=== PATIENT | male | born 1970 | race Caucasian/White ===

== ENCOUNTER 2025-05-10 11:47 | Emergency (ER) | payer SELFPAY ==
[2025-05-10] MEDS ORDERED: HYDROCODONE/APAP 7.5/325 MG TAB ONE (14:07)
--- NOTE | 2025-05-10 14:42 | RAD REPORT ---
EXAM: Scrotum Testicles HISTORY: 55 years Male PAIN COMPARISON: None TECHNIQUE: Multiplanar grayscale and color Doppler images were obtained in a testicular/scrotal ultra sound. Spectral analysis of the Doppler waveforms of the testicles were performed. FINDINGS: Right testicle: Normal in echogenicity. No focal mass. Normal internal flow. The right testicle brian ures 4.7 x 2.3 x 3.3 cm with volume of 18.8 mL. Left testicle: Normal in echogenicity. No focal mass. Mild hypervascularity. The left testicle measu res 3.9 x 2.7 x 3.7 cm with volume of 20.3 mL. Right epididymis. No epididymal cyst. Normal internal flow. Left epididymis. No epididymal cyst. Enlarged and hypervascular Small but complex left hydrocele. There are multiple septations. Small right hydrocele which is simpl e in appearance. No varicocele. IMPRESSION: Enlarged and hypervascular left epididymis and testicle likely reflecting epididymoorchitis. A small but complex left hydrocele is present. Bilateral testicular blood flow.
--- NOTE | 2025-05-10 15:10 | EDPHYS ---
Physician Documentation [facility] Name: Cole Rice Age: 55 yrs Sex: Male : 1970 Arrival Date: 05/10/2025 Time: 11:47 Bed 23 Private MD: ED Physician Chuy Cox HPI: 05/10 15:09 This 55 yrs old Male presents to ER via Ambulatory with complaints of Testicular Pain. kb 15:09 Patient is a 55-year-old male who presents for swelling, pain to left testicle that kb started yesterday is gotten worse. Denies fever, urinary symptoms.. Historical: - Allergies: 12:11 LITHIUM DERIVITIVES; ss - PMHx: 12:11 CHF; seizures; Hypertensive disorder; ss ROS: 15:04 Constitutional: As per HPI kb Exam: 15:04 Constitutional: This is a well developed, well nourished patient who is awake, alert, kb and in no acute distress. Head/Face: Normocephalic, atraumatic. ENT: Moist Mucous membranes Respiratory: Respirations even and unlabored. No increased work of breathing. Talking in full sentences Skin: Warm, dry with normal turgor. Normal color. MS/ Extremity: Pulses equal, no cyanosis. Neurovascular intact. Full, normal range of motion. Neuro: Awake and alert, GCS 15, oriented to person, place, time, and situation. 15:04 : Male external genitalia: swelling, of the left testicle is noted, scrotal, tenderness, of the epididymis area, that is moderate, Vital Signs: 16:01 BP 108 / 92; Pulse 77; Resp 16; Pulse Ox 98% on R/A; jb4 MDM: 11:54 Medical Screening Exam initiated kb 15:05 Differential diagnosis: Epididymitis, orchitis, testicular torsion. Data reviewed: kb vital signs, nurses notes. Counseling: I had a detailed discussion with the patient and/or guardian regarding the historical points, exam findings, and any diagnostic results supporting the discharge/admit diagnosis, radiology results, the need for outpatient follow up, a urologist, to return to the emergency department if symptoms worsen or persist or if there are any questions or concerns that arise at home. 05/10 11:54 Order name: Scrotum Testicles US; Complete Time: 14:43 kb Administered Medications: 14:17 Drug: Hydrocodone-Acetaminophen PO (7.5 mg-325 mg) 1 tabs PO once Route: PO; ss 16:00 Follow up: Response: No adverse reaction; Marked relief of symptoms; Pain is decreased jb4 15:42 Drug: Rocephin (cefTRIAXone) IM 500 mg IM once Route: IM; Site: right gluteus; jb4 16:00 Follow up: Response: No adverse reaction jb4 15:42 Drug: Doxycycline PO 100 mg PO once Route: PO; jb4 16:00 Follow up: Response: No adverse reaction jb4 Disposition Summary: 05/10/25 15:10 Discharge Ordered Notes: Location: Home kb Condition: Stable kb Diagnosis - Epididymo-orchitis kb Followup: kb - With: Emergency Department - When: As needed - Reason: Worsening of condition Followup: kb - With: Private Physician - When: 2 - 3 days - Reason: Recheck today's complaints, Continuance of care, Re-evaluation by your physician Discharge Instructions: - Discharge Summary Sheet kb - Epididymitis kb - Orchitis kb Forms: - Medication Reconciliation Form kb - Antibiotic Education kb - Prescription Opioid Use kb - Patient Portal Instructions kb - Leadership Thank You Letter kb Prescriptions: - Doxycycline Hyclate 100 mg Oral Tablet - take 1 tablet ORAL route every 12 hours; 20 tablet; Refills: 0, Product kb Selection Permitted Signatures: Dispatcher [employer] Nohelia Pop, ZAHEER-C SEAFOOD CLERK-Alana Liz, RN RN ss Shahzad Watson RN RN jb4 Vesna Jauregui, RN RN kb3
--- NOTE | 2025-05-10 15:10 | ER ---
Nurse's Notes [facility] Name: Cole Rice Age: 55 yrs Sex: Male : 1970 Arrival Date: 05/10/2025 Time: 11:47 Bed 23 [facility] MD: Diagnosis: Epididymo-orchitis Presentation: 05/10 12:10 Chief complaint: Patient states: L testicular pain and swelling that began yesterday. ss Coronavirus screen: Client denies travel out of the [place] in the last 14 days. Ebola Screen: Patient denies exposure to infectious person. Patient denies travel to an Ebola-affected area in the 21 days before illness onset. Initial Sepsis Screen: Does the patient meet any 2 criteria? No. Patient's initial sepsis screen is negative. Does the patient have a suspected source of infection? No. Patient's initial sepsis screen is negative. Risk Assessment: Do you want to hurt yourself or someone else? Patient reports no desire to harm self or others. Onset of symptoms was May 09, 2025. 12:10 Method Of Arrival: Ambulatory ss 12:10 Acuity: PORSCHE 3 ss Historical: - Allergies: 12:11 LITHIUM DERIVITIVES; ss - PMHx: 12:11 CHF; seizures; Hypertensive disorder; ss Screenin:17 Abuse screen: Denies threats or abuse. Denies injuries from another. Nutritional ss screening: No deficits noted. Tuberculosis screening: Never had TB. 16:01 [facility] ED Fall Risk Assessment (Adult) History of falling in the last 3 months, jb4 including since admission No falls in past 3 months (0 pts) Confusion or Disorientation No (0 pts) Intoxicated or Sedated No (0 pts) Impaired Gait No (0 pts) Mobility Assist Device Used No (0 pt) Altered Elimination No (0 pt) Score/Fall Risk Level 0 - 2 = Low Risk Oriented to surroundings, Maintained a safe environment. Assessment: 14:17 General: Appears uncomfortable, Behavior is calm, cooperative. Pain: Complains of pain ss in left testicle and right testicle Pain currently is 9 out of 10 on a pain scale. Is continuous. Neuro: Level of Consciousness is awake, alert, obeys commands, Oriented to person, place, time, situation. Respiratory: Airway is patent Respiratory effort is even, unlabored, Respiratory pattern is regular, symmetrical. EENT: Nares are clear Oral mucosa is moist. Derm: Skin is intact, is healthy with good turgor, Skin is pink, warm \T\ dry. normal. 16:01 Reassessment: Patient appears in no apparent distress at this time. Patient and/or jb4 family updated on plan of care and expected duration. Pain level reassessed. Patient is alert, oriented x 3, equal unlabored respirations, skin warm/dry/pink. Vital Signs: 16:01 BP 108 / 92; Pulse 77; Resp 16; Pulse Ox 98% on R/A; jb4 ED Course: 11:49 Patient arrived in ED. al6 11:54 Nohelia Horvath, SHIV[facility] is [facility]. kb 11:54 Chuy Cox MD is Attending Physician. kb 12:11 Triage completed. ss 12:35 Scrotum Testicles US In Process Unspecified. EDMS 15:30 Shahzad Watson, RN is Primary Nurse. jb4 16:01 Patient has correct armband on for positive identification. Bed in low position. Call jb4 light in reach. Side rails up X 1. Provided Education on: discharge instructions.. 16:01 No provider procedures requiring assistance completed. Patient did not have IV access jb4 during this emergency room visit. Administered Medications: 14:17 Drug: Hydrocodone-Acetaminophen PO (7.5 mg-325 mg) 1 tabs PO once Route: PO; ss 16:00 Follow up: Response: No adverse reaction; Marked relief of symptoms; Pain is decreased jb4 15:42 Drug: Rocephin (cefTRIAXone) IM 500 mg IM once Route: IM; Site: right gluteus; jb4 16:00 Follow up: Response: No adverse reaction jb4 15:42 Drug: Doxycycline PO 100 mg PO once Route: PO; jb4 16:00 Follow up: Response: No adverse reaction jb4 Medication: 16:01 VIS not applicable for this client. jb4 Outcome: 15:10 Discharge ordered by . kb 16:01 Discharged to home ambulatory, jb4 16:01 Condition: stable 16:01 Discharge instructions given to patient, Instructed on discharge instructions, follow up and referral plans. medication usage, Demonstrated understanding of instructions, follow-up care, medications, Prescriptions given X 1, 16:04 Patient left the ED. jb4 Signatures: Dispatcher [employer] EDMS Nohelia Horvath MARKET RESEARCH INTERN-C MARKET RESEARCH INTERN-Ckb Alana Mg, RN RN ss Shahzad Watson RN RN jb4 Delores Luke
[2025-05-10] MEDS ORDERED: CEFTRIAXONE 500 MG/VIAL ONE (15:32)
[2025-05-10] MEDS ORDERED: WATER FOR INJ,STERILE 10 ML ONE (15:33)
[2025-05-10] MEDS ORDERED: DOXYCYCLINE 100 MG CAP PO ONE (15:33)
[2025-05-10 16:32] VITALS: BP 108/92; O2SAT 98
== END 2025-05-10 16:04 | disposition home or self-care (01) ==
LOC: ER 11:47
DX: N45.3 Epididymo-orchitis (principal)
CPT/HCPCS: 76870; 96372; 99284; J0696